=== PATIENT | female | born 1995 | race Hispanic/Latino ===

== ENCOUNTER 2017-09-25 14:35 | Emergency (ER) | payer BC, OTHER | END 2017-09-25 15:15 | disposition home or self-care (01) | LOC: EDH 14:35 | DX: J10.1 Influenza due to other identified influenza virus with other respiratory manifestations (principal) ==

== ENCOUNTER 2017-12-01 17:29 | Emergency (ER) | payer BC ==
[2017-12-01] MEDS ORDERED: DEXAMETHASONE SOD PHOSPHATE 10MG/ML 1ML VIAL ONE (18:07)
== END 2017-12-01 18:31 | disposition home or self-care (01) ==
LOC: EDH 17:29
DX: O99.511 Diseases of the respiratory system complicating pregnancy, first trimester (principal); J06.9 Acute upper respiratory infection, unspecified; Z3A.12 12 weeks gestation of pregnancy
CPT/HCPCS: 96372; 99283; J1100

== ENCOUNTER 2017-12-03 09:55 | Emergency (ER) | payer BC ==
[2017-12-03] MEDS ORDERED: SODIUM CHLORIDE 0.9% 1000ML 1,000 ML IV ONE (10:16)
[2017-12-03] MEDS ORDERED: ONDANSETRON HCL MDV 20ML 2 MG/ML VIAL ONE (10:16)
[2017-12-03 10:39] LABS: BASOPHILS % (AUTO) 1.1 % (0.0-5.0); EOSINOPHILS % (AUTO) 0.2 % (0.0-8.0); HEMATOCRIT 37.2 % (36-48); LYMPHOCYTES % (AUTO) 17.8 % (21.0-51.0); MEAN CORPUSCULAR HEMOGLOBIN 30.3 pg (27.0-33.0); MEAN CORPUSCULAR HGB CONC 34.2 g/dL (32.0-36.0); MEAN CORPUSCULAR VOLUME 88.7 fL (79-99); MONOCYTES % (AUTO) 5.2 % (3.0-13.0); NEUTROPHILS % (AUTO) 75.7 % (40.0-77.0); PLATELET COUNT (AUTO) 282 K/uL (130-400); RED CELL DISTRIBUTION WIDTH 12.5 % (11.0-15.5); WHITE BLOOD COUNT (AUTO) 11.7 K/uL (4.8-10.8)
[2017-12-03 10:49] LABS: CREATININE 0.8 mg/dL (0.5-1.5); POTASSIUM 3.5 mmol/L (3.5-5.1)
[2017-12-03 11:28] LABS: APPEARANCE,URINE Cloudy (CLEAR); BILIRUBIN,URINE Negative (NEGATIVE); COLOR,URINE Dark Yellow (YELLOW); GLUCOSE, URINE (UA) Negative (NEGATIVE); KETONES,URINE >=160 mg/dL (NEGATIVE); LEUKOCYTE ESTERASE ,URINE Moderate (NEGATIVE); NITRATE,URINE Negative (NEGATIVE); OCCULT BLOOD,URINE Negative (NEGATIVE); PH,URINE 5.5 (5.0-8.0); PROTEIN,URINE POS 1+ (NEGATIVE)
[2017-12-03 11:48] LABS: BACTERIA,URINE Few /HPF (None Seen); MUCUS,URINE Few LPF (None Seen); RBC,URINE 0-1 /HPF (0-1); SQUAMOUS EPITHELIAL CELL,UR Moderate /LPF (0-2)
== END 2017-12-03 12:40 | disposition home or self-care (01) ==
LOC: EDH 09:55
DX: O21.0 Mild hyperemesis gravidarum (principal); O23.11 Infections of bladder in pregnancy, first trimester; Z3A.11 11 weeks gestation of pregnancy
CPT/HCPCS: 36415; 80048; 81001; 85025; 96361; 96374; 99284; J7030

== ENCOUNTER 2018-01-24 12:11 | Emergency (ER) | payer BC, MEDICAID, OTHER | END 2018-01-24 13:08 | disposition home or self-care (01) | LOC: EDH 12:11 | DX: O20.0 Threatened abortion (principal); Z3A.20 20 weeks gestation of pregnancy | CPT/HCPCS: 99281 ==

== ENCOUNTER 2018-06-15 19:28 | Inpatient (IN) | payer BC, MEDICAID ==
[~2018-06-15] VITALS: Ht 152.4 cm; Wt 64.0 kg
[2018-06-15] MEDS ORDERED: LACTATED RINGERS 1000ML 1,000 ML IV PRN (20:33)
[2018-06-15 21:34] LABS: APPEARANCE,URINE Clear (CLEAR); BILIRUBIN,URINE Negative (NEGATIVE); COLOR,URINE Yellow (YELLOW); GLUCOSE, URINE (UA) Negative (NEGATIVE); KETONES,URINE Trace mg/dL (NEGATIVE); LEUKOCYTE ESTERASE ,URINE Moderate (NEGATIVE); NITRATE,URINE Negative (NEGATIVE); OCCULT BLOOD,URINE Negative (NEGATIVE); PROTEIN,URINE Trace (NEGATIVE)
[2018-06-15 21:40] LABS: RBC,URINE 0-1 /HPF (0-1)
[2018-06-15 21:41] LABS: BACTERIA,URINE Few /HPF (None Seen); MUCUS,URINE Rare LPF (None Seen); SQUAMOUS EPITHELIAL CELL,UR Few /HPF (0-2)
[2018-06-15] MEDS ORDERED: AMPICILLIN 2GM+NS 100ML 100 ML IV SCH (21:45)
[2018-06-15] MEDS ORDERED: OXYTOCIN-LR 20 UNITS/1000 ML 1,000 ML IV SCH (22:00)
[2018-06-15 22:40] LABS: MEAN CORPUSCULAR HEMOGLOBIN 28.6 pg (27.0-33.0); MEAN CORPUSCULAR HGB CONC 33.6 g/dL (32.0-36.0); PLATELET COUNT (AUTO) 281 K/uL (130-400); RED BLOOD CELL COUNT(AUTO) 3.65 MIL/uL (4.00-5.50); RED CELL DISTRIBUTION WIDTH 13.1 % (11.0-15.5)
[2018-06-16] MEDS: AMPICILLIN 1GM+NS 50ML 50 ML IV SCH ×2 (02:56→06:24)
[2018-06-16] MEDS ORDERED: OXYTOCIN 10 USP UNITS/ML ONE ×2 (02:59→10:45)
[2018-06-16] MEDS ORDERED: LACTATED RINGERS 1000ML 1,000 ML IV ONE ×2 (02:59→10:44)
[2018-06-16] MEDS ORDERED: MEPERIDINE-PF 50 MG/ML SYG ONE (06:44)
[2018-06-16] MEDS ORDERED: PROMETHAZINE HCL 25 MG/ML 1ML AMPULE IM ONE (06:44)
[2018-06-16] MEDS ORDERED: PROMETHAZINE HCL 25 MG/ML 1ML AMPULE IM SCH (06:45)
[2018-06-16] MEDS ORDERED: MEPERIDINE-PF 50 MG/ML SYG IVP ONE (06:45)
[2018-06-16] MEDS ORDERED: LIDOCAINE HCL MPF 1% 5ML VIAL ONE (09:29)
[2018-06-16] MEDS ORDERED: LANOLIN 30GM OINTMENT TP PRN (11:00)
[2018-06-16] MEDS ORDERED: WITCH HAZEL 1 PAD TP PRN (11:00)
[2018-06-16] MEDS ORDERED: ACETAMINOPHEN-CODEINE 300/30MG TAB PO PRN (11:00)
[2018-06-16] MEDS ORDERED: DIPH,PERTUSS(ACELL),TET VAC/PF 0.5 ML VIAL IM PRN (11:00)
[2018-06-16] MEDS ORDERED: ACETAMINOPHEN 325 MG TAB PO PRN (11:00)
[2018-06-16] MEDS ORDERED: MEASLES/MUMPS/RUBELLA VACCINE, LIVE 0.5 ML/VIAL SQ PRN (11:00)
[2018-06-16] MEDS ORDERED: HYDROCODONE/ACETAMINOPHEN 5/325 MG TAB PO PRN (11:00)
[2018-06-16] MEDS ORDERED: BENZOCAINE/LANOLIN/ALOE VERA 60 ML AEROSOL TP PRN (11:00)
[2018-06-16 12:12] VITALS: BP 126/80
[2018-06-16 16:01] VITALS: BP 125/79
[2018-06-16] MEDS: IBUPROFEN 800 MG TAB PO PRN (17:05)
[2018-06-16 20:21] VITALS: BP 122/70
[2018-06-16] MEDS: DOCUSATE SODIUM 100 MG CAP PO SCH (22:37)
[2018-06-16 23:44] VITALS: BP 127/72
[2018-06-17 03:48] VITALS: BP 111/69
[2018-06-17 05:32] LABS: HEMATOCRIT 28.1 % (36-48); MEAN CORPUSCULAR HEMOGLOBIN 28.6 pg (27.0-33.0); MEAN CORPUSCULAR HGB CONC 33.4 g/dL (32.0-36.0); MEAN CORPUSCULAR VOLUME 85.7 fL (79-99); PLATELET COUNT (AUTO) 244 K/uL (130-400); RED BLOOD CELL COUNT(AUTO) 3.28 MIL/uL (4.00-5.50); WHITE BLOOD COUNT (AUTO) 13.4 K/uL (4.8-10.8)
[2018-06-17 07:17] VITALS: BP 113/68
[2018-06-17 08:21] LABS: HEPATITIS Bs ANTIGEN SCREEN P Negative (Negative)
[2018-06-17] MEDS: DOCUSATE SODIUM 100 MG CAP PO SCH (08:48)
[2018-06-17] MEDS: IBUPROFEN 800 MG TAB PO PRN (08:49)
[2018-06-17 11:28] VITALS: BP 104/63
== END 2018-06-17 13:40 | disposition home or self-care (01) | DRG 775 ==
LOC: LDH 20:25 → WSH 06-16 11:55
PROVIDERS: ADMIT Obstetrics & Gynecology; ATTEND Obstetrics & Gynecology
PROC: 10E0XZZ Delivery of Products of Conception, External Approach (ICD-10-PCS; principal; 2018-06-16)
PROC: 10907ZC Drainage of Amniotic Fluid, Therapeutic from Products of Conception, Via Natural or Artificial Opening (ICD-10-PCS; 2018-06-16)
PROC: 3E0P7VZ Introduction of Hormone into Female Reproductive, Via Natural or Artificial Opening (ICD-10-PCS; 2018-06-16)
DX: O69.1XX0 Labor and delivery complicated by cord around neck, with compression, not applicable or unspecified (principal); Z37.0 Single live birth; Z3A.39 39 weeks gestation of pregnancy; O90.81 Anemia of the puerperium; D64.9 Anemia, unspecified
CPT/HCPCS: 36415; 81001; 85027; 86592; 86850; 86900; 86901; 87340; A4351; J0290; J2175; J2550; J2590; J3490; J7120

== ENCOUNTER 2018-09-15 09:23 | Emergency (ER) | payer BC, MEDICAID ==
[2018-09-15 09:52] LABS: APPEARANCE,URINE Cloudy (CLEAR); BILIRUBIN,URINE Negative (NEGATIVE); COLOR,URINE Dark Yellow (YELLOW); GLUCOSE, URINE (UA) Negative (NEGATIVE); HCG,QUAL RESULT NEGATIVE (NEGATIVE); KETONES,URINE Trace mg/dL (NEGATIVE); LEUKOCYTE ESTERASE ,URINE Small (NEGATIVE); NITRATE,URINE Negative (NEGATIVE); OCCULT BLOOD,URINE Large (NEGATIVE); PROTEIN,URINE Trace (NEGATIVE)
[2018-09-15 09:57] LABS: BACTERIA,URINE Few /HPF (None Seen); MUCUS,URINE Moderate LPF (None Seen); RBC,URINE 0-1 /HPF (0-1); SQUAMOUS EPITHELIAL CELL,UR Few /HPF (0-2)
[2018-09-15] MEDS ORDERED: IBUPROFEN 400 MG TABLET ONE (10:00)
== END 2018-09-15 10:04 | disposition home or self-care (01) ==
LOC: EDH 09:23
DX: N39.0 Urinary tract infection, site not specified (principal); N94.6 Dysmenorrhea, unspecified
CPT/HCPCS: 81001; 81025; 87088

== ENCOUNTER 2019-08-05 08:05 | Emergency (ER) | payer BC ==
[2019-08-05 08:40] LABS: BASOPHILS % (AUTO) 1.1 % (0.0-5.0); EOSINOPHILS % (AUTO) 2.4 % (0.0-8.0); HEMATOCRIT 43.2 % (36-48); LYMPHOCYTES % (AUTO) 33.3 % (21.0-51.0); MEAN CORPUSCULAR HEMOGLOBIN 29.6 pg (27.0-33.0); MEAN CORPUSCULAR HGB CONC 33.7 g/dL (32.0-36.0); MEAN CORPUSCULAR VOLUME 87.7 fL (79-99); MONOCYTES % (AUTO) 7.5 % (3.0-13.0); NEUTROPHILS % (AUTO) 55.7 % (40.0-77.0); NUCLEATED RED BLOOD CELLS 0.1 % (0.0-0.19); PLATELET COUNT (AUTO) 270 K/uL (130-400); RED BLOOD CELL COUNT(AUTO) 4.92 MIL/uL (4.00-5.50); WHITE BLOOD COUNT (AUTO) 7.9 K/uL (4.8-10.8)
[2019-08-05 08:50] LABS: CREATININE 0.8 mg/dL (0.5-1.5); POTASSIUM 3.2 mmol/L (3.5-5.1)
[2019-08-05 08:54] LABS: ALBUMIN 4.3 g/dL (3.5-5.0); BILIRUBIN,DIRECT 0.1 mg/dL (0.0-0.3); BILIRUBIN,TOTAL 0.7 mg/dL (0.2-1.0); TOTAL PROTEIN, SERUM 8.2 g/dL (6.0-8.3)
[2019-08-05 09:21] LABS: HCG,QUAL RESULT NEGATIVE (NEGATIVE)
[2019-08-05 09:22] LABS: AMPHET/METH SCREEN,URINE NEGATIVE (NEGATIVE); BARBITURATE SCREEN, URINE NEGATIVE (NEGATIVE); BENZODIAZEPINES SCREEN,URINE NEGATIVE (NEGATIVE); CANNABINOID SCREEN,URINE NEGATIVE (NEGATIVE); COCAINE SCREEN,URINE NEGATIVE (NEGATIVE); OPIATE SCREEN,URINE NEGATIVE (NEGATIVE); PHENCYCLIDINE SCREEN,URINE NEGATIVE (NEGATIVE)
== END 2019-08-05 10:25 | disposition home or self-care (01) ==
LOC: EDH 08:05
DX: R07.89 Other chest pain (principal); R06.02 Shortness of breath
CPT/HCPCS: 36415; 71045; 80048; 80076; 80305; 81025; 85025; 85378; 93005

== ENCOUNTER 2019-12-05 08:11 | Emergency (ER) | payer BC ==
[2019-12-05] MEDS ORDERED: SODIUM CHLORIDE 0.9% 1000ML 1,000 ML IV ONE (09:12)
[2019-12-05] MEDS ORDERED: ONDANSETRON HCL 4 MG/2 ML VIAL ONE (09:12)
[2019-12-05 09:27] LABS: BASOPHILS % (AUTO) 0.3 % (0.0-5.0); EOSINOPHILS % (AUTO) 2.3 % (0.0-8.0); HEMATOCRIT 38.4 % (36-48); LYMPHOCYTES % (AUTO) 26.9 % (21.0-51.0); MEAN CORPUSCULAR HEMOGLOBIN 28.4 pg (27.0-33.0); MEAN CORPUSCULAR HGB CONC 32.8 g/dL (32.0-36.0); MEAN CORPUSCULAR VOLUME 86.5 fL (79-99); MONOCYTES % (AUTO) 7.9 % (3.0-13.0); NEUTROPHILS % (AUTO) 62.3 % (40.0-77.0); PLATELET COUNT (AUTO) 285 K/uL (130-400); RED BLOOD CELL COUNT(AUTO) 4.44 MIL/uL (4.00-5.50); WHITE BLOOD COUNT (AUTO) 6.6 K/uL (4.8-10.8)
[2019-12-05 09:50] LABS: CREATININE 0.7 mg/dL (0.5-1.5); POTASSIUM 3.4 mmol/L (3.5-5.1)
[2019-12-05 09:57] LABS: ALBUMIN 3.8 g/dL (3.5-5.0); BILIRUBIN,DIRECT 0.1 mg/dL (0.0-0.3); BILIRUBIN,TOTAL 0.4 mg/dL (0.2-1.0); TOTAL PROTEIN, SERUM 7.6 g/dL (6.0-8.3)
== END 2019-12-05 11:22 | disposition home or self-care (01) ==
LOC: EDH 08:11
DX: K52.9 Noninfective gastroenteritis and colitis, unspecified (principal)
CPT/HCPCS: 36415; 80048; 80076; 83690; 84702; 85025; 96361; 96374; 99284; J2405; J7030

== ENCOUNTER 2021-01-22 05:30 | Day surgery (SDC) | payer BC ==
[2021-01-21 10:19] LABS: BASOPHILS % (AUTO) 1.1 % (0.0-5.0); EOSINOPHILS % (AUTO) 2.7 % (0.0-8.0); HEMATOCRIT 39.3 % (36-48); LYMPHOCYTES % (AUTO) 33.2 % (21.0-51.0); MEAN CORPUSCULAR HEMOGLOBIN 28.6 pg (27.0-33.0); MEAN CORPUSCULAR HGB CONC 32.8 g/dL (32.0-36.0); MEAN CORPUSCULAR VOLUME 87.1 fL (79-99); NEUTROPHILS % (AUTO) 54.7 % (40.0-77.0); PLATELET COUNT (AUTO) 360 K/uL (130-400); RED BLOOD CELL COUNT(AUTO) 4.51 MIL/uL (4.00-5.50); RED CELL DISTRIBUTION WIDTH 12.1 % (11.0-15.5)
[2021-01-21 13:53] VITALS: BP 109/64
[~2021-01-22] VITALS: Ht 157.5 cm; Wt 72.8 kg
[2021-01-22] VITALS (17 sets, daily range): BP systolic 107–125; BP diastolic 63–74
[2021-01-22] MEDS ORDERED: LACTATED RINGERS 1000ML 1,000 ML IV ONE (05:46)
[2021-01-22] MEDS ORDERED: CEFAZOLIN SODIUM 1 GM VIAL ONE (05:46)
[2021-01-22] MEDS ORDERED: ROCURONIUM 10MG/1ML SYR 10 MG/ML ML ONE (06:43)
[2021-01-22] MEDS ORDERED: ONDANSETRON HCL 4 MG/2 ML VIAL ONE (06:43)
[2021-01-22] MEDS ORDERED: MIDAZOLAM HCL 1 MG/ML 2ML VIAL ONE (06:43)
[2021-01-22] MEDS ORDERED: PROPOFOL 10 MG/ML 20ML VIAL IV ONE (06:43)
[2021-01-22] MEDS ORDERED: FENTANYL CITRATE PF 50 MCG/1 ML 2ML VIAL ONE (06:44)
[2021-01-22] MEDS ORDERED: GLYCOPYRROLATE 1 MG/5 ML SYRINGE ONE (07:33)
[2021-01-22] MEDS ORDERED: NEOSTIGMINE 5MG/5ML SYR IV ONE (07:33)
[2021-01-22] MEDS ORDERED: MEPERIDINE-PF 25 MG/ML SYG ONE (08:24)
== END 2021-01-22 09:25 | disposition home or self-care (01) ==
LOC: DAH 05:30
PROVIDERS: ATTEND Obstetrics & Gynecology
DX: Z30.2 Encounter for sterilization (principal); Z20.828 Contact with and (suspected) exposure to other viral communicable diseases
CPT/HCPCS: 36415; 58670; 84703; 85025; 86850; 86900; 86901; A4215 ×2; A4221; A4222; A4223; A4351; A4452; A4510; A4600; A4606; A4663; A4930; C1769 ×2; C9803; J2175; J2250; J2405; J2704; J2710; J3010; J3490; J7120; U0003; J0690